=== PATIENT | male | born 1990 | race Caucasian/White ===

== ENCOUNTER 2022-01-19 00:56 | Emergency (ER) | payer SELFPAY ==
--- NOTE | ~2022-01-19 | XR_ITS ---
EXAMINATION: XR ELBOW, LEFT CLINICAL INFORMATION: Pain status post injury COMPARISON: None TECHNIQUE: AP, lateral, and oblique views of the left elbow. FINDINGS: No fracture or dislocation. Alignment is maintained. Joint spaces are maintained. No elbow joint effusion. The soft tissues are unremarkable. XR/XR elbow LT min 3V IMPRESSION: No fracture or malalignment.
[2022-01-19 01:23] VITALS: BP 114/65; PULSE 86; RESP 18; TEMP 36.2; O2SAT 96; BMI 33.6
--- NOTE | 2022-01-19 03:56 | ED_ITS ---
HPI - Extremity Problem General Chief complaint: Extremity Injury, Upper Stated complaint: elbow inj Time Seen by Provider: 01/19/22 03:56 Source: patient Mode of arrival: ambulatory Limitations: no limitations History of Present Illness HPI Narrative: patient was playing softball, was sliding into 3rd base and he heard a crack. MD Complaint: extremity pain Related Data Previous Rx's Medication Instructions Recorded naproxen 500 mg tablet (Naprosyn) 500 mg PO BID #20 tabs 01/19/22 Allergies Allergy/AdvReac Type Severity Reaction Status Date / Time No Known Allergies Allergy Verified 01/19/22 01:23 [No Known Allergies*] Review of Systems Constitutional: Constitutional: Reports no additional constitutional complaints Eyes: Eyes: Reports no additional eye complaints ENT: Denies dizziness Cardiovascular: Cardiovascular: Reports no additional cardiovascular complaints Respiratory: Respiratory: Reports as per HPI Gastrointestinal: Gastrointestinal: Reports no additional gastrointestinal complaints Musculoskeletal: Musculoskeletal: Reports no additional musculoskeletal com plaints Integumentary/Breasts: Skin/Breast: Denies rash Neurologic: Reports system reviewed and no additional complaints, except as documented, Denies dizziness and Denies Sensory deficit (Neuro) Psychiatric: Psychiatric: Denies anxiety Physical Exam Vital Signs: Vital Signs: Last Vital Signs Temp 97.2 F 01/19/22 01:23 Pulse 86 01/19/22 01:23 Resp 18 01/19/22 01:23 BP 114/65 01/19/22 01:23 Pulse Ox 96 01/19/22 01:23 O2 Del Method 01/19/22 01:23 BMI result Body Mass Index 33.6 Const: General: healthy appearing Nutritional Appearance: average body habitus Orientation/consciousness: oriented to person and patient oriented x3 Limitations: no limitations HEENT: Head: Yes normal to inspection Ears: external ears normal General nose exam: Normal external nose present Mouth: Normal oral and palatal mucosa present and oropharynx normal Throat: Yes posterior oropharynx normal Eyes: General: appearance normal, both eyes and all related structures Neck: Other: supple Neck: Yes normal visual inspection Chest: Chest palpation & inspection: normal inspection of the chest Resp: Auscultation: clear to auscultation bilaterally Cardio: Jugular venous distension: no JVD Rate: regular rate Rhythm: regular rhythm Heart sounds: S1 normal heart sound present and S2 normal heart sound present GI: Inspection: Yes normal to inspection Palpation (GI): Soft to palpation, nontender and No hepatosplenomegaly present Auscultation: normal bowel sounds : General: Yes no CVA tenderness Back/Spine/Pelvis: Back: no CVA tenderness Skin: General skin exam: no rashes or lesions noted Neuro: General: oriented to person and patient oriented x3 Cranial nerves: Yes CN's II-XII intact bilaterally Motor exam (neuro): 5/5 motor strength present throughout Sensory Exam: No Sensory deficit (Neuro) Extrem: Other: elbow with pain and decreased range of motion, no effusion Psych: Appearance: grossly normal Course Reevaluation(s) Reevaluation #1: patient with elbow sprain will start on ice and NSAIDS with a sling Time: 04:00 MDM - Extremity (Nontraumatic) Imaging Data elbow: Radiologist's impression: FINDINGS: No fracture or dislocation. Alignment is maintained. Joint spaces are maintained. No elbow joint effusion. The soft tissues are unremarkable. ? XR/XR elbow LT min 3V IMPRESSION: No fracture or malalignment. Discharge Plan Discharge Clinical Impression: Elbow sprain Patient Disposition: Home, Self-Care Instructions: Elbow Sprain (ED), R.I.C.E. Treatment (ED) Prescriptions: New naproxen [Naprosyn] 500 mg tablet 500 mg PO BID Qty: 20 0RF Referrals: Physician,Unknown J [Primary Care Provider] - 1 week Stand Alone Forms: Work/School Release
[2022-01-19] MEDS: Ketorolac Tromethamine 60 MG/2 ML VIAL IM (04:13)
--- NOTE | 2022-01-19 04:25 | PC.NURSE ---
pt medicated for pain per mar orders and sling applied to L arm.
== END 2022-01-19 04:26 | disposition home or self-care (01) ==
PROVIDERS: Emergency Provider Emergency Medicine
DX: S53.402A Unspecified sprain of left elbow, initial encounter (principal); W22.8XXA Striking against or struck by other objects, initial encounter; Y93.64 Activity, baseball; Y92.320 Baseball field as the place of occurrence of the external cause; Y99.9 Unspecified external cause status
CPT/HCPCS: 73080; 96372; 99283; 99284; J1885

== ENCOUNTER 2022-06-13 09:29 | Emergency (ER) | payer SELFPAY ==
[2022-06-13 09:47] VITALS: BP 115/77; PULSE 92; RESP 18; TEMP 36.6; O2SAT 99; BMI 30.5
--- NOTE | 2022-06-13 10:37 | ED.EYEPROB ---
HPI - Eye Problem General Chief complaint: Eye Problems Stated complaint: R eye swollen, no inj Time Seen by Provider: 06/13/22 10:29 Source: patient Mode of arrival: ambulatory Limitations: no limitations History of Present Illness HPI Narrative: 31 yo male presenting to the ER for evaluation of right upper eyelid redness, swelling and discomfort that started yesterday. He states he woke up this morning with increased redness and swelling and his eye was crusted shut. He had some yellow discharge that has since resolved. He denies any vision changes buthis right eye is watering more than the left. It is uncomfortable. No pain with extraocular movement. No fevers, chills, headaches. No FB sensation or known trauma. He does not wear contacts or glasses. chief complaint: eye pain and eye redness Onset (ago): day(s) (1) Onset description: gradual Duration: constant Location: right eye Eye Symptoms: redness, pain and discharge Mechanism: none Severity: moderate Severity scale (1-10): 5 If Pain, Quality: aching and throbbing Associated symptoms: none Treatments Prior to Arrival: none Related Data Previous Rx's Medication Instructions Recorded naproxen 500 mg tablet (Naprosyn) 500 mg PO BID #20 tabs 01/19/22 polymyxin B sulfate 10,000 1 drp ophthalmic (eye) Q3H 7 days 06/13/22 unit-trimethoprim 1 mg/mL eye #10 mL drops (Polytrim) Allergies Allergy/AdvReac Type Severity Reaction Status Date / Time No Known Allergies Allergy Verified 01/19/22 01:23 [No Known Allergies*] Review of Systems Review of Systems: Yes all other systems are reviewed and are negative [facility] Social History Social History Advance Directives: No Advance Directives Information Provided: No Physical Exam Vital Signs: Vital Signs: Last Vital Signs Temp 97.8 F 06/13/22 09:47 Pulse 92 06/13/22 09:47 Resp 18 06/13/22 09:47 BP 115/77 06/13/22 09:47 Pulse Ox 99 06/13/22 09:47 O2 Del Method 06/13/22 09:47 BMI result Body Mass Index 30.5 Appearance: Alert. Oriented X3. No acute distress. HEENT: right upper eyelid with swelling and erythema, tender. eversion of the eyelid with visible internal stye. no scleral icterus, no injection, no discharge. PERRLA. EOMI CVS: Normal heart rate and rhythm. Pulses normal. Respiratory: No respiratory distress. Skin: Skin warm and dry. Normal skin color. No rashes. Extremities: normal inspection x4 Neuro: Oriented X 3. Nonfocal Course Course Course Narrative: 31 yo male presenting to the ER with right upper eyelid swelling, redness and pain along with some discharge when he woke up this morning. Exam is c/w hordeolum. Will give rx for abx drops. warm compresses discussed. stable for d/c home. Medical Decision Making Differential Diagnosis Differential Diagnoses: The differential diagnosis associated with the presentation includes external hordeolum, internal hordelum, preseptal cellulitis, conjunctivitis, no evidence of orbital cellulitis Prescription Management I considered prescription management with: Antibiotic Critical Care Time Critical Care Time Critical Care Time: No Discharge Plan Discharge Clinical Impression: Hordeolum externum (stye) Patient Disposition: Home, Self-Care Instructions: Braulio (ED) Additional Instructions: Use warm compresses to the eye several times per day Use the prescribed antibiotic drops as directed Follow up with your eye doctor If you develop worsening symptoms call you doctor or come back to the ER for further evaluation. Prescriptions: New polymyxin B sulf-trimethoprim [Polytrim] 10,000 unit- 1 mg/mL drops 1 drp ophthalmic (eye) Q3H 7 Days Qty: 10 0RF Rx Instructions: while awake; do not exceed 6 doses in 24 hours No Action naproxen [Naprosyn] 500 mg tablet 500 mg PO BID Qty: 20 0RF Stand Alone Forms: Work/School Release Interventions: ED Discharge Assessment Last Done: 06/13/22 10:48 Discharge Date/Time: 06/13/22 10:48
== END 2022-06-13 10:48 | disposition home or self-care (01) ==
PROVIDERS: Emergency Provider Student in an Organized Health Care Education/Training Program
DX: H00.011 Hordeolum externum right upper eyelid (principal); Z79.899 Other long term (current) drug therapy
CPT/HCPCS: 99282

== ENCOUNTER 2023-10-20 23:03 | Emergency (ER) | payer SELFPAY ==
[2023-10-20 23:29] VITALS: BP 112/64; PULSE 93; RESP 16; TEMP 36.9; O2SAT 98; BMI 32.9
== END 2023-10-21 02:31 | disposition left against medical advice (07) ==
LOC: HO.ED 10-21 02:21
PROVIDERS: Emergency Provider Emergency Medicine
DX: M79.605 Pain in left leg (principal)
CPT/HCPCS: 99281

== ENCOUNTER 2023-10-21 20:35 | Emergency (ER) | payer SELFPAY ==
[2023-10-21 20:58] VITALS: BP 114/63; PULSE 68; RESP 18; TEMP 36.6; O2SAT 98; BMI 32.9
--- NOTE | 2023-10-21 22:25 | ED_ITS ---
HPI - Animal Bite General Chief Complaint: Animal Bite Stated Complaint: unknown insect bite Time Seen by Provider: 10/21/23 22:01 Source: patient Mode of arrival: ambulatory Limitations: no limitations History of Present Illness ED Provider: Dr. Qian Arechiga HPI narrative: Patient comes to the emergency room complaining of an insect bite to the left calf. Patient states that it started about 3 days ago and the redness and pain and swelling has gradually been spreading. Patient denies fever chills Related Data Previous Rx's ?Medication ?Instructions ?Recorded naproxen 500 mg tablet (Naprosyn) 500 mg PO BID #20 tabs 01/19/22 polymyxin B sulfate 10,000 1 drp ophthalmic (eye) Q3H 7 days 06/13/22 unit-trimethoprim 1 mg/mL eye #10 mL drops (Polytrim) cephalexin 500 mg capsule 500 mg PO BID #14 caps 10/21/23 doxycycline hyclate 100 mg capsule 100 mg PO BID #14 caps 10/21/23 ibuprofen 600 mg tablet 600 mg PO TID PRN fever or pain 10/21/23 #10 tabs Allergies Allergy/AdvReac Type Severity Reaction Status Date / Time No Known Allergies Allergy Verified 10/21/23 21:00 [No Known Allergies*] Review of Systems Review of Systems: Constitutional : No Weight loss, No Fever, No Chills, No Night Sweats, No Fatigue, No Malaise ENT/Mouth : No Hearing loss, No Ear Pain, No Nasal Congestion, No Sinus Pain, No Hoarseness, No sore throat, No Rhinorrhea, No Swallowing Difficulty Eyes: No Eye Pain, No Swelling, No Redness, No Foreign Body, No Discharge, No Vision Changes Cardiovascular : No Chest Pain, No SOB, No Dyspnea on Exertion, No Orthopnea, No Edema, No Palpitations Respiratory : No Cough, No Sputum, No Wheezing, No Smoke Exposure, No Dyspnea Gastrointestinal : No Nausea, No Vomiting, No Diarrhea, No Constipation, No abdominal Pain, No Hematochezia, No Melena Genitourinary : no irregular bleeding, No Dysuria, No Urinary Frequency, No Hematuria, No Urinary Incontinence, No Urgency, No Flank Pain, No Urinary Flow Changes, No Hesitancy Musculoskeletal : No joint pain, No Myalgias, No Joint Swelling Skin : Insect bite with cellulitis in the back of the calf on the left leg Neuro : No Weakness, No Numbness, No Paresthesias, No Loss of Consciousness, No Dizziness, No Headache Psych : No Anxiety/Panic, No Depression, No SI/HI/AH/VH, No Social Issues, Heme/Lymph: No Bruising, No Bleeding,No Lymphadenopathy Endocrine : No Polyuria, No Polydipsia, No Temperature Intolerance PMFSH Social History Social History Advance Directives: No Advance Directives Information Provided: No Do you have a plan to hurt others: No Plan Physical Exam ED Vital Signs: Vital Signs - 24 hr 10/21/23 20:58 Temperature 97.8 F Pulse Rate 68 Respiratory Rate 18 Blood Pressure 114/63 Pulse Oximetry 98 Oxygen Delivery Method Room Air BMI result Body Mass Index 32.9 Const Other: Appearance: Alert. Oriented X3. No acute distress. Eyes: Pupils equal, round and reactive to light. ENT: Pharynx normal. Neck: Normal inspection. Neck supple. No lymph nodes noted. No crepitus CVS: Normal heart rate and rhythm. Pulses normal. Normal S1 and S2 Respiratory: No respiratory distress. Breath sounds normal. No Wheezing. No rales Abdomen: Soft and nontender. No rigidity. No distention. Skin: Skin warm and dry. In the back of the calf on the left, there is a 3 cm x 3 cm area of erythema, warmth, with a central eschar approximately 2 mm x 10 mm. Extremities: No lower extremity edema. No Lacerations. No Rash Neuro: Oriented X 3. No motor deficit. No sensory deficit. Moving all extremities. No slurred speech. CN 2 through 12 grossly intact Psych: calm, cooperative, normal affect Medical Decision Making Medical Decision Making MDM Narrative: -I discussed with the patient that he started to develop an abscess. Discussed with the patient that we need to I and D/unroof the wound to drain the pus and start antibiotics, patient agrees with plan -eschar was removed with an 18 gauge needle tip, with pressure, a small pus was expressed. -patient was given Tdap, cephalexin p.o. and doxycycline Differential Diagnosis Differential Diagnoses: The differential diagnosis associated with the presentation includes (Insect bite, cellulitis, abscess) Discharge Plan Discharge Clinical Impression: Insect bite, Cellulitis Patient Disposition: Home, Self-Care Instructions: Cellulitis (ED), Cold Compress or Soak (ED) Additional Instructions: Please follow-up with your primary care physician tomorrow. If you have any worsening or new symptoms, please return to the emergency room or call 911 Prescriptions: New cephalexin 500 mg capsule 500 mg PO BID Qty: 14 0RF doxycycline hyclate 100 mg capsule 100 mg PO BID Qty: 14 0RF ibuprofen 600 mg tablet 600 mg PO TID PRN (Reason: fever or pain) Qty: 10 0RF No Action polymyxin B sulf-trimethoprim [Polytrim] 10,000 unit- 1 mg/mL drops 1 drp ophthalmic (eye) Q3H 7 Days Qty: 10 0RF Rx Instructions: while awake; do not exceed 6 doses in 24 hours naproxen [Naprosyn] 500 mg tablet 500 mg PO BID Qty: 20 0RF Print Language: Slovenian
[2023-10-21 22:35] VITALS: BP 107/68; PULSE 63; RESP 16; TEMP 36.6; O2SAT 98
[2023-10-21] MEDS: Diphth,Pertus(ACell),Tet Adult 0.5 ML SYRINGE IM (22:38)
[2023-10-21] MEDS: Doxycycline Monohydrate 100 MG CAPSULE PO (22:39)
[2023-10-21] MEDS: cephALEXin 250 MG CAPSULE PO (22:39)
[2023-10-21 22:42] VITALS: BP 107/68; PULSE 63; RESP 16; TEMP 36.6; O2SAT 98
== END 2023-10-21 22:42 | disposition home or self-care (01) ==
PROVIDERS: Emergency Provider Emergency Medicine
DX: S81.812A Laceration without foreign body, left lower leg, initial encounter (principal); L03.116 Cellulitis of left lower limb; X58.XXXA Exposure to other specified factors, initial encounter; Y93.9 Activity, unspecified; Y92.9 Unspecified place or not applicable; Y99.8 Other external cause status; Z79.899 Other long term (current) drug therapy; Z23 Encounter for immunization
CPT/HCPCS: 90471; 90715; 99283; 99284

== ENCOUNTER 2023-11-08 14:30 | Emergency (ER) | payer SELFPAY ==
--- NOTE | ~2023-11-08 | XR_ITS ---
EXAMINATION: XR RIBS, BILATERAL CLINICAL INFORMATION: Bilateral rib pain after lifting a box COMPARISON: None available. TECHNIQUE: 3 views of the bilateral ribs were obtained. FINDINGS: Lungs are clear. No consolidation, pneumothorax, or pleural effusion. The cardiomediastinal silhouette and pulmonary vasculature are normal. Osseous structures are unremarkable. Ribs are intact. No fractures are identified. XR/XR ribs BI min 4V w CXR1V IMPRESSION: Unremarkable examination.
[2023-11-08 14:46] VITALS: BP 108/61; PULSE 63; RESP 18; TEMP 36.6; O2SAT 96; BMI 32.5
--- NOTE | 2023-11-08 14:48 | ED.GENADULT ---
HPI - General Adult General Chief complaint: General Medical Stated complaint: Rib pain when breathing Time Seen by Provider: 11/08/23 15:19 Related Data Previous Rx's ?Medication ?Instructions ?Recorded naproxen 500 mg tablet (Naprosyn) 500 mg PO BID #20 tabs 01/19/22 polymyxin B sulfate 10,000 1 drp ophthalmic (eye) Q3H 7 days 06/13/22 unit-trimethoprim 1 mg/mL eye #10 mL drops (Polytrim) cephalexin 500 mg capsule 500 mg PO BID #14 caps 10/21/23 doxycycline hyclate 100 mg capsule 100 mg PO BID #14 caps 10/21/23 ibuprofen 600 mg tablet 600 mg PO TID PRN fever or pain 10/21/23 #10 tabs Allergies Allergy/AdvReac Type Severity Reaction Status Date / Time No Known Allergies Allergy Verified 11/08/23 14:52 [No Known Allergies*] PMFSH Social History Social History Advance Directives: No Advance Directives Information Provided: No Do you have a plan to hurt others: No Plan Physical Exam ED Vital Signs: BMI result Body Mass Index 32.5 Course Course Course Narrative: This is a rapid medical exam performed by Kalani Rock NP: Additional HPI, ROS, PE not included below will be deferred to primary provider. Patient is a 33-year-old male presenting to the ED with complaint of bilateral rib pain which began while lifting a box which he states was not that heavy. Occurred at work. History of kidney stones feels similar. Plan: xray, labs, ua Medications Administered Discontinued Medications Generic Name Dose Route Start Last Admin Trade Name Freq PRN Reason Stop Dose Admin Ketorolac Tromethamine 30 mg 11/08/23 15:28 11/08/23 16:31 Ketorolac Tromethamine 30 Mg/Ml Vial IM 11/08/23 15:29 30 mg ONCE ONE Administration Medical Decision Making Lab Data 11/08/23 15:17 11/08/23 15:17 Labs: Lab Results 11/08/23 Range/Units 15:17 WBC 7.8 (4.8-10.8) X10*3/uL RBC 4.82 (4.60-5.80) X10*6/uL Hgb 14.1 (14.0-18.0) g/dl Hct 43.4 (42.0-52.0) % MCV 90.0 (80.0-98.0) fL MCH 29.3 (27.0-33.0) pg MCHC 32.5 (31.0-36.0) g/dl RDW 11.9 (11.0-16.0) % Plt Count 237 (160-400) X10*3/uL MPV 10.1 (9.4-12.4) fL Immature Gran % (Auto) 0.4 (0.0-0.4) % Neut % (Auto) 59.0 (45-73) % Lymph % (Auto) 33.1 (20-40) % [place] % (Auto) 5.9 (2-11) % Eos % (Auto) 1.2 (0-4) % Baso % (Auto) 0.4 (0-2) % Lymph # (Auto) 2.6 (1.2-4.9) X10*3/uL [place] # (Auto) 0.5 (0.1-1.2) X10*3/uL Eos # (Auto) 0.1 (0.0-0.4) X10*3/uL Baso # (Auto) 0.0 (0.0-0.2) X10*3/uL Abs Immat Gran (auto) 0.03 (0.00-0.03) X10*3/uL Absolute Neuts (auto) 4.6 (2.0-8.3) x10*3/uL Absolute Nucleated RBC 0.000 (0.0-0.012) X10*3/uL Nucleated RBC % (auto) 0.0 (0.0-0.2) /100WBC Sodium 141 (135-145) mmol/L Potassium 4.4 (3.3-5.1) mmol/L Chloride 105 (96-108) mmol/L Carbon Dioxide 31 H (22-29) mmol/L Anion Gap 9 L (12-20) BUN 15 (9-16) mg/dL Creatinine 1.03 (0.5-1.4) mg/dL Estim Creat Clear Calc 113.6 Estimated GFR > 60 Random Glucose 96 (60-115) mg/dL Calcium 9.6 (8.4-10.2) mg/dL Total Bilirubin 0.4 (0.0-1.0) mg/dL AST 18 (5-37) U/L ALT 14 (0-40) U/L Alkaline Phosphatase 78 (39-117) U/L Total Protein 7.5 (6.5-8.0) g/dL Albumin 4.5 (3.5-5.0) g/dL Discharge Plan Discharge Clinical Impression: Rib pain Patient Disposition: Home, Self-Care Instructions: Muscle Strain (ED) Additional Instructions: You were seen and evaluated in the emergency room. Your blood work was normal. Your x-rays were normal. Please take 1000 mg Tylenol every 8 hours as needed for pain relief. You may additionally takes 600 mg ibuprofen every 6 hours as needed for additional pain relief. Please always take with food and water. Please wait 12 hours from your ER visit before taking ibuprofen. Please follow-up with your primary care doctor in the next 1-2 weeks.? Please return to the emergency room if you develop any worsening symptoms including, but not limited to fever, chest pain or difficulty breathing. ? Prescriptions: No Action polymyxin B sulf-trimethoprim [Polytrim] 10,000 unit- 1 mg/mL drops 1 drp ophthalmic (eye) Q3H 7 Days Qty: 10 0RF Rx Instructions: while awake; do not exceed 6 doses in 24 hours naproxen [Naprosyn] 500 mg tablet 500 mg PO BID Qty: 20 0RF cephalexin 500 mg capsule 500 mg PO BID Qty: 14 0RF doxycycline hyclate 100 mg capsule 100 mg PO BID Qty: 14 0RF ibuprofen 600 mg tablet 600 mg PO TID PRN (Reason: fever or pain) Qty: 10 0RF Referrals: [facility] [place] [facility] [Provider Group] Interventions: ED Discharge Assessment Last Done: 11/08/23 17:09 Discharge Date/Time: 11/08/23 17:12 Print Language: Uzbek
[2023-11-08 15:20] VITALS: BP 110/64; PULSE 66; RESP 18; TEMP 36.8; O2SAT 98
[2023-11-08 15:21] LABS: MANUAL DIFF FLAG NO
--- NOTE | 2023-11-08 15:23 | ED_ITS ---
HPI - General Adult General Chief complaint: General Medical Stated complaint: Rib pain when breathing Time Seen by Provider: 11/08/23 15:19 Source: patient Mode of arrival: ambulatory Limitations: no limitations History of Present Illness HPI narrative: This is a 33-year-old with no reported past medical history who presents for evaluation of bilateral rib pain. The patient states that he was making a delivery 4 days prior to presentation and began to develop pain after moving a box. He states the box was not that heavy and that it was a ?Chewy box. He states taking Tylenol with some alleviation of his pain on that day. He states taking no Tylenol or ibuprofen since that time. He states no other trauma or falls. He states no midline back pain. He states no fevers or chills. He states no recent cough, congestion, nausea/vomiting or diarrhea no illness. He states no chest pain. He states no rash. He states recurrence of his rib pain today after lifting other box. He states pain is worse on his left rib, but states a still feels pain on his right rib as well. Related Data Previous Rx's ?Medication ?Instructions ?Recorded naproxen 500 mg tablet (Naprosyn) 500 mg PO BID #20 tabs 01/19/22 polymyxin B sulfate 10,000 1 drp ophthalmic (eye) Q3H 7 days 06/13/22 unit-trimethoprim 1 mg/mL eye #10 mL drops (Polytrim) cephalexin 500 mg capsule 500 mg PO BID #14 caps 10/21/23 doxycycline hyclate 100 mg capsule 100 mg PO BID #14 caps 10/21/23 ibuprofen 600 mg tablet 600 mg PO TID PRN fever or pain 10/21/23 #10 tabs Allergies Allergy/AdvReac Type Severity Reaction Status Date / Time No Known Allergies Allergy Verified 11/08/23 14:52 [No Known Allergies*] Review of Systems 2 Review of Systems: ROS as per [facility] Social History Social History Advance Directives: No Advance Directives Information Provided: No Do you have a plan to hurt others: No Plan Physical Exam ED Vital Signs: Vital Signs - 24 hr 11/08/23 14:46 11/08/23 15:20 Temperature 98 F 98.2 F Pulse Rate 63 66 Respiratory Rate 18 18 Blood Pressure 108/61 110/64 Pulse Oximetry 96 98 Oxygen Delivery Method Room Air Room Air BMI result Body Mass Index 32.5 Gen: NAD, AOx3 HEENT: NCAT, EOMI, normal conjunctiva CV: RRR Pulm: CTAB, no increased work of breathing GI: Soft, NTND, no rebound, guarding or rigidity MSK: Mild tenderness to palpation to the left lateral chest wall and right lateral chest wall without overlying skin changes Neuro: Grossly non focal Medications Administered Discontinued Medications Generic Name Dose Route Start Last Admin Trade Name Roxann PRN Reason Stop Dose Admin Ketorolac Tromethamine 30 mg 11/08/23 15:28 11/08/23 16:31 Ketorolac Tromethamine 30 Mg/Ml Vial IM 11/08/23 15:29 30 mg ONCE ONE Administration Medical Decision Making Medical Decision Making [facility] Narrative: Differential diagnosis includes, but is not limited to strain, sprain, pneumothorax. Consider herpes zoster but this is thought to be significantly less likely given bilateral nature of pain, waxing and waning pain and lack of a vesicular rash on examination. Patient is afebrile and hemodynamically stable on room air. Exam is benign and reassuring. Given history and exam, I suspect that the etiology of patient's pain is most likely musculoskeletal in nature and I will treat it as such. Patient is provided 30 mg IM Toradol. Diagnostic imaging studies are unremarkable for any acute findings. On re-examination, patient is well-appearing and in no acute distress. ?Patient states symptoms have improved with Toradol. ?There is no indication for further emergent evaluation in this otherwise well-appearing patient as above. ?Patient is provided written and verbal instructions, educational materials, recommendations for outpatient follow-up, strict return precautions and teach back is performed. ?Patient states understanding and agreement with plan of care. ?Patient is discharged home in stable and improved condition. Admission/Observation Consideration of admission/observation: Escalation of care including admission/observation considered Lab Data [facility] Lab Attestation statement: I reviewed the patient's lab results. 11/08/23 15:17 11/08/23 15:17 Labs: Lab Results 11/08/23 Range/Units 15:17 WBC 7.8 (4.8-10.8) X10*3/uL RBC 4.82 (4.60-5.80) X10*6/uL Hgb 14.1 (14.0-18.0) g/dl Hct 43.4 (42.0-52.0) % MCV 90.0 (80.0-98.0) fL MCH 29.3 (27.0-33.0) pg MCHC 32.5 (31.0-36.0) g/dl RDW 11.9 (11.0-16.0) % Plt Count 237 (160-400) X10*3/uL MPV 10.1 (9.4-12.4) fL Immature Gran % (Auto) 0.4 (0.0-0.4) % Neut % (Auto) 59.0 (45-73) % Lymph % (Auto) 33.1 (20-40) % Morrow % (Auto) 5.9 (2-11) % Eos % (Auto) 1.2 (0-4) % Baso % (Auto) 0.4 (0-2) % Lymph # (Auto) 2.6 (1.2-4.9) X10*3/uL Morrow # (Auto) 0.5 (0.1-1.2) X10*3/uL Eos # (Auto) 0.1 (0.0-0.4) X10*3/uL Baso # (Auto) 0.0 (0.0-0.2) X10*3/uL Abs Immat Gran (auto) 0.03 (0.00-0.03) X10*3/uL Absolute Neuts (auto) 4.6 (2.0-8.3) x10*3/uL Absolute Nucleated RBC 0.000 (0.0-0.012) X10*3/uL Nucleated RBC % (auto) 0.0 (0.0-0.2) /100WBC Sodium 141 (135-145) mmol/L Potassium 4.4 (3.3-5.1) mmol/L Chloride 105 (96-108) mmol/L Carbon Dioxide 31 H (22-29) mmol/L Anion Gap 9 L (12-20) BUN 15 (9-16) mg/dL Creatinine 1.03 (0.5-1.4) mg/dL Estim Creat Clear Calc 113.6 Estimated GFR > 60 Random Glucose 96 (60-115) mg/dL Calcium 9.6 (8.4-10.2) mg/dL Total Bilirubin 0.4 (0.0-1.0) mg/dL AST 18 (5-37) U/L ALT 14 (0-40) U/L Alkaline Phosphatase 78 (39-117) U/L Total Protein 7.5 (6.5-8.0) g/dL Albumin 4.5 (3.5-5.0) g/dL Independent Interpretation I performed an independent interpretation of an: Plain X-Ray Interpretation: X-ray does not show evidence of pneumothorax Radiology Impression Discussion of test interpretation with radiology: I have reviewed the radiologist's reading. Radiologist Impression: IMPRESSION: Unremarkable examination. Dictated By: Roberto Escamilla MD Signed By: <Electronically signed by Roberto Escamilla MD in OV> 11/08/23 1636 Discharge Plan Discharge Clinical Impression: Rib pain Patient Disposition: Home, Self-Care Instructions: Muscle Strain (ED) Additional Instructions: You were seen and evaluated in the emergency room. Your blood work was normal. Your x-rays were normal. Please take 1000 mg Tylenol every 8 hours as needed for pain relief. You may additionally takes 600 mg ibuprofen every 6 hours as needed for additional pain relief. Please always take with food and water. Please wait 12 hours from your ER visit before taking ibuprofen. Please follow-up with your primary care doctor in the next 1-2 weeks.? Please return to the emergency room if you develop any worsening symptoms including, but not limited to fever, chest pain or difficulty breathing. ? Prescriptions: No Action polymyxin B sulf-trimethoprim [Polytrim] 10,000 unit- 1 mg/mL drops 1 drp ophthalmic (eye) Q3H 7 Days Qty: 10 0RF Rx Instructions: while awake; do not exceed 6 doses in 24 hours naproxen [Naprosyn] 500 mg tablet 500 mg PO BID Qty: 20 0RF cephalexin 500 mg capsule 500 mg PO BID Qty: 14 0RF doxycycline hyclate 100 mg capsule 100 mg PO BID Qty: 14 0RF ibuprofen 600 mg tablet 600 mg PO TID PRN (Reason: fever or pain) Qty: 10 0RF Referrals: [facility] Print Language: Georgian
[2023-11-08 15:28] LABS: Basophils Percent Auto 0.4 % (0-2); Eosinophils Absolute Auto 0.1 X10*3/uL (0.0-0.4); Eosinophils Percent Auto 1.2 % (0-4); Hematocrit 43.4 % (42.0-52.0); Hemoglobin 14.1 g/dl (14.0-18.0); Imm Gran Abs Auto 0.03 X10*3/uL (0.00-0.03); Imm Gran Pct Auto 0.4 % (0.0-0.4); Lymphocytes Absolute Auto 2.6 X10*3/uL (1.2-4.9); Lymphocytes Percent Auto 33.1 % (20-40); Mean Corpuscular HGB Conc 32.5 g/dl (31.0-36.0); Mean Corpuscular Hemoglobin 29.3 pg (27.0-33.0); Mean Platelet Volume 10.1 fL (9.4-12.4); Monocytes Absolute Auto 0.5 X10*3/uL (0.1-1.2); Monocytes Percent Auto 5.9 % (2-11); Neutrophils Absolute Auto 4.6 x10*3/uL (2.0-8.3); Platelet Count 237 X10*3/uL (160-400); Red Blood Count 4.82 X10*6/uL (4.60-5.80); Red Cell Distribution Width 11.9 % (11.0-16.0); White Blood Count 7.8 X10*3/uL (4.8-10.8)
[2023-11-08 15:45] LABS: Alanine Aminotransferase 14 U/L (0-40); Albumin Level 4.5 g/dL (3.5-5.0); Alkaline Phosphatase 78 U/L (39-117); Anion Gap 9 (12-20); Aspartate Amino Transferase 18 U/L (5-37); Bilirubin Total 0.4 mg/dL (0.0-1.0); Blood Urea Nitrogen 15 mg/dL (9-16); Calcium 9.6 mg/dL (8.4-10.2); Carbon Dioxide 31 mmol/L (22-29); Chloride 105 mmol/L (96-108); Creatinine Clr Calc Pharmacy 113.6; Estimated Glomerular Filt Rate > 60; Glucose Random 96 mg/dL (60-115); Potassium 4.4 mmol/L (3.3-5.1); Sodium 141 mmol/L (135-145); Total Protein 7.5 g/dL (6.5-8.0)
[2023-11-08] MEDS: Ketorolac Tromethamine 30 MG/ML VIAL IM (16:31)
[2023-11-08 17:09] VITALS: BP 110/64; PULSE 66; RESP 18; TEMP 36.8; O2SAT 98
== END 2023-11-08 17:12 | disposition home or self-care (01) ==
PROVIDERS: Registered Nurse Emergency; Emergency Provider Emergency Medicine
DX: R07.81 Pleurodynia (principal)
CPT/HCPCS: 36415; 71111; 80053; 85025; 96372; 99283; 99284; J1885

== ENCOUNTER 2023-12-03 21:30 | Emergency (ER) | payer SELFPAY ==
--- NOTE | ~2023-12-03 | XR_ITS ---
EXAMINATION: XR FOOT, LEFT CLINICAL INFORMATION: Left foot injury COMPARISON: 07/26/2017 TECHNIQUE: AP, lateral, and oblique views of the left foot. FINDINGS: Minimal arthrosis at the first MTP joint with small osteophytes. Trabecular coarsening and cortical thickening at the fifth metatarsal base most likely corresponds to an old healed fracture. No acute fractures or stress reactions. Soft tissues are unremarkable. No subcutaneous gas. XR/XR foot LT min 3V IMPRESSION: 1. No acute fracture or malalignment. 2. Minimal arthrosis at the first MTP joint. 3. Old healed fifth metatarsal base fracture.
[2023-12-03 21:37] VITALS: BP 132/72; PULSE 105; RESP 19; TEMP 36.7; O2SAT 97; BMI 33.2
[2023-12-03] MEDS: Ibuprofen 600 MG TABLET PO (23:53)
[2023-12-03] MEDS: cephALEXin 500 MG CAPSULE PO (23:53)
[2023-12-04] VITALS: BP 130/70; PULSE 93; RESP 18; TEMP 36.8; O2SAT 98
--- NOTE | 2023-12-04 00:17 | ED.LOWEXIN ---
HPI - Extremity Injury (Lower) General Chief Complaint: Extremity Injury, Lower Stated Complaint: left foot pain Time Seen by Provider: 12/03/23 23:19 Source: patient Mode of arrival: ambulatory Limitations: no limitations History of Present Illness ED Provider: Dr. Qian Arechiga HPI Narrative: Patient comes to the emergency room complaining of foot pain on the left. Patient states that yesterday he accidentally dropped a heavy cooler on his foot, patient was wearing Crocs. Patient states that the dorsum of the foot hurts, but has been able to walk without any significant difficulty. Related Data Previous Rx's ?Medication ?Instructions ?Recorded naproxen 500 mg tablet (Naprosyn) 500 mg PO BID #20 tabs 01/19/22 polymyxin B sulfate 10,000 1 drp ophthalmic (eye) Q3H 7 days 06/13/22 unit-trimethoprim 1 mg/mL eye #10 mL drops (Polytrim) cephalexin 500 mg capsule 500 mg PO BID #14 caps 10/21/23 doxycycline hyclate 100 mg capsule 100 mg PO BID #14 caps 10/21/23 ibuprofen 600 mg tablet 600 mg PO TID PRN fever or pain 10/21/23 #10 tabs cephalexin 500 mg capsule 500 mg PO BID #14 caps 12/04/23 ibuprofen 600 mg tablet 600 mg PO Q8H PRN fever or pain 12/04/23 #20 tabs Allergies Allergy/AdvReac Type Severity Reaction Status Date / Time No Known Allergies Allergy Verified 12/03/23 21:39 [No Known Allergies*] Review of Systems Review of Systems: Constitutional : No Weight loss, No Fever, No Chills, No Night Sweats, No Fatigue, No Malaise ENT/Mouth : No Hearing loss, No Ear Pain, No Nasal Congestion, No Sinus Pain, No Hoarseness, No sore throat, No Rhinorrhea, No Swallowing Difficulty Eyes: No Eye Pain, No Swelling, No Redness, No Foreign Body, No Discharge, No Vision Changes Cardiovascular : No Chest Pain, No SOB, No Dyspnea on Exertion, No Orthopnea, No Edema, No Palpitations Respiratory : No Cough, No Sputum, No Wheezing, No Smoke Exposure, No Dyspnea Gastrointestinal : No Nausea, No Vomiting, No Diarrhea, No Constipation, No abdominal Pain, No Hematochezia, No Melena Genitourinary : no irregular bleeding, No Dysuria, No Urinary Frequency, No Hematuria, No Urinary Incontinence, No Urgency, No Flank Pain, No Urinary Flow Changes, No Hesitancy Musculoskeletal : Complaining of pain in the dorsum of the left foot No joint pain, No Myalgias, No Joint Swelling Skin : No Skin Lesions, No rash Neuro : No Weakness, No Numbness, No Paresthesias, No Loss of Consciousness, No Dizziness, No Headache Psych : No Anxiety/Panic, No Depression, No SI/HI/AH/VH, No Social Issues, Heme/Lymph: No Bruising, No Bleeding,No Lymphadenopathy Endocrine : No Polyuria, No Polydipsia, No Temperature Intolerance [facility] Social History Social History Smoked in Last 30 Days: No Advance Directives: No Advance Directives Information Provided: No Do you have a plan to hurt others: No Plan Physical Exam Vital Signs: Vital Signs: Last Vital Signs Temp 98.2 F 12/04/23 00:00 Pulse 93 12/04/23 00:00 Resp 18 12/04/23 00:00 BP 130/70 12/04/23 00:00 Pulse Ox 98 12/04/23 00:00 O2 Del Method Room Air 12/04/23 00:00 BMI result Body Mass Index 33.2 Const: Other: Appearance: Alert. Oriented X3. No acute distress. Eyes: Pupils equal, round and reactive to light. ENT: Pharynx normal. Neck: Normal inspection. Neck supple. No lymph nodes noted. No crepitus CVS: Normal heart rate and rhythm. Pulses normal. Normal S1 and S2 Respiratory: No respiratory distress. Breath sounds normal. No Wheezing. No rales Abdomen: Soft and nontender. No rigidity. No distention. Skin: Skin warm and dry. Normal skin color. Normal skin turgor. Mild erythema 3 cm x 3 cm on the dorsum of the left foot Extremities: No lower extremity edema. No Lacerations. No Rash Neuro: Oriented X 3. No motor deficit. No sensory deficit. Moving all extremities. No slurred speech. CN 2 through 12 grossly intact Psych: calm, cooperative, normal affect Medications Administered Discontinued Medications Generic Name Dose Route Start Last Admin Trade Name Freq PRN Reason Stop Dose Admin Cephalexin HCl 500 mg 12/03/23 23:41 12/03/23 23:53 Cephalexin 500 Mg Capsule PO 12/03/23 23:42 500 mg ONCE ONE Administration Ibuprofen 600 mg 12/03/23 23:41 12/03/23 23:53 Ibuprofen 600 Mg Tablet PO 12/03/23 23:42 600 mg ONCE ONE Administration Medical Decision Making Medical Decision Making [facility] Narrative: My interpretation of x-ray of the foot: No obvious fracture, normal alignment. -patient has mild erythema on the dorsum of the foot, patient likely has cellulitis. - patient was given the 1st dose of antibiotics, cephalexin Differential Diagnosis Differential Diagnoses: The differential diagnosis associated with the presentation includes (Foot contusion, fracture, cellulitis) Independent Interpretation I performed an independent interpretation of an: Plain X-Ray Radiology Impression Discussion of test interpretation with radiology: I have reviewed the radiologist's reading. Radiologist Impression: Minimal arthrosis at the first MTP joint with small osteophytes. Trabecular coarsening and cortical thickening at the fifth metatarsal base most likely corresponds to an old healed fracture. No acute fractures or stress reactions. Soft tissues are unremarkable. No subcutaneous gas. XR/XR foot LT min 3V IMPRESSION: 1. No acute fracture or malalignment. 2. Minimal arthrosis at the first MTP joint. 3. Old healed fifth metatarsal base fracture. Discharge Plan Discharge Clinical Impression: Contusion of foot, Cellulitis Patient Disposition: Home, Self-Care Instructions: Cellulitis (ED), Foot Contusion (ED) Additional Instructions: Please follow-up with your primary care physician tomorrow. If you have any worsening or new symptoms, please return to the emergency room or call 911 Prescriptions: New cephalexin 500 mg capsule 500 mg PO BID Qty: 14 0RF ibuprofen 600 mg tablet 600 mg PO Q8H PRN (Reason: fever or pain) Qty: 20 0RF No Action polymyxin B sulf-trimethoprim [Polytrim] 10,000 unit- 1 mg/mL drops 1 drp ophthalmic (eye) Q3H 7 Days Qty: 10 0RF Rx Instructions: while awake; do not exceed 6 doses in 24 hours naproxen [Naprosyn] 500 mg tablet 500 mg PO BID Qty: 20 0RF cephalexin 500 mg capsule 500 mg PO BID Qty: 14 0RF doxycycline hyclate 100 mg capsule 100 mg PO BID Qty: 14 0RF ibuprofen 600 mg tablet 600 mg PO TID PRN (Reason: fever or pain) Qty: 10 0RF Print Language: Estonian
[2023-12-04 00:28] VITALS: BP 130/70; PULSE 93; RESP 18; TEMP 36.8; O2SAT 98
== END 2023-12-04 00:29 | disposition home or self-care (01) ==
PROVIDERS: Emergency Provider Emergency Medicine
DX: S90.32XA Contusion of left foot, initial encounter (principal); W20.8XXA Other cause of strike by thrown, projected or falling object, initial encounter; L03.116 Cellulitis of left lower limb; Y93.89 Activity, other specified; Y92.9 Unspecified place or not applicable; Y99.9 Unspecified external cause status
CPT/HCPCS: 73630; 99283; 99284

== ENCOUNTER 2024-05-28 11:30 | Emergency (ER) | payer SELFPAY ==
--- NOTE | ~2024-05-28 | XR_ITS ---
EXAMINATION: XR FOOT 3 OR MORE VIEWS RIGHT, XR ANKLE 3 OR MORE VIEWS RIGHT HISTORY: pain COMPARISON: Comparison is made with the prior examination of the right ankle dated 02/23/2019. FINDINGS: Six views of the right foot and ankle are submitted. Osseous mineralization is normal. There is no fracture or dislocation. The joint spaces are preserved. The soft tissues are unremarkable. XR/XR ankle RT min 3V IMPRESSION: Unremarkable examination of the right foot and ankle. Electronically signed by: Dorian Cortés MD 05/28/2024 12:46 PM EST
--- NOTE | ~2024-05-28 | XR_ITS ---
EXAMINATION: XR FOOT 3 OR MORE VIEWS RIGHT, XR ANKLE 3 OR MORE VIEWS RIGHT HISTORY: pain COMPARISON: Comparison is made with the prior examination of the right ankle dated 02/23/2019. FINDINGS: Six views of the right foot and ankle are submitted. Osseous mineralization is normal. There is no fracture or dislocation. The joint spaces are preserved. The soft tissues are unremarkable. XR/XR foot RT min 3V IMPRESSION: Unremarkable examination of the right foot and ankle. Electronically signed by: Dorian Cortés MD 05/28/2024 12:46 PM EST
[2024-05-28 11:57] VITALS: BP 117/63; PULSE 61; RESP 18; TEMP 36.8; O2SAT 99; BMI 32.1
--- NOTE | 2024-05-28 12:00 | ED_ITS ---
HPI - Extremity Injury (Lower) General Chief Complaint: Extremity Injury, Lower Stated Complaint: R foot toe inj Time Seen by Provider: 05/28/24 14:01 Source: patient Mode of arrival: ambulatory Limitations: no limitations History of Present Illness ED Provider: Nicky Carrillo APRN HPI Narrative: 33-year-old male previously healthy here with complaints of right great toe pain after kicking a curb yesterday. Patient denies associated numbness, tingling, weakness of the extremity. Patient reports pain is worsened with weight- bearing. Related Data Previous Rx's ?Medication ?Instructions ?Recorded naproxen 500 mg tablet (Naprosyn) 500 mg PO BID #20 tabs 01/19/22 polymyxin B sulfate 10,000 1 drp ophthalmic (eye) Q3H 7 days 06/13/22 unit-trimethoprim 1 mg/mL eye #10 mL drops (Polytrim) cephalexin 500 mg capsule 500 mg PO BID #14 caps 10/21/23 doxycycline hyclate 100 mg capsule 100 mg PO BID #14 caps 10/21/23 ibuprofen 600 mg tablet 600 mg PO TID PRN fever or pain 10/21/23 #10 tabs cephalexin 500 mg capsule 500 mg PO BID #14 caps 12/04/23 ibuprofen 600 mg tablet 600 mg PO Q8H PRN fever or pain 12/04/23 #20 tabs acetaminophen 325 mg tablet 650 mg (2 x 325 mg) PO Q4H PRN 05/28/24 (Tylenol) fever or pain #30 tabs ibuprofen 600 mg tablet 600 mg PO Q8H PRN fever or pain 05/28/24 #20 tabs Allergies Allergy/AdvReac Type Severity Reaction Status Date / Time No Known Allergies Allergy Verified 05/28/24 12:01 [No Known Allergies*] Review of Systems Review of Systems: Yes all other systems are reviewed and are negative Constitutional: Constitutional: Reports no additional constitutional complaints, Denies body ache(s), Denies chills, Denies fever(s), Denies headache(s) and Denies weakness Eyes: Eyes: Reports no additional eye complaints and Denies change in vision ENT: Reports system reviewed and no additional complaints, except as documented, Denies dizziness, Denies headache(s), Denies nasal congestion, Denies nasal discharge and Denies neck pain Cardiovascular: Cardiovascular: Reports no additional cardiovascular complaints, Denies chest pain, Denies leg edema and Denies dyspnea Respiratory: Respiratory: Reports no additional respiratory complaints, Denies cough and Denies dyspnea Gastrointestinal: Gastrointestinal: Reports no additional gastrointestinal complaints, Denies abdominal pain, Denies diarrhea, Denies nausea and Denies vomiting Genitourinary: Genitourinary: Denies urinary incontinence Musculoskeletal: Musculoskeletal: Reports no additional musculoskeletal complaints, Denies back pain, Reports arthralgias, Reports joint swelling, Denies limited range of motion, Denies neck pain, Denies numbness and Denies tingling Integumentary/Breasts: Skin/Breast: Reports system reviewed and no additional complaints, except as docu and Denies rash Neurologic: Reports system reviewed and no additional complaints, except as documented, Denies Abnormal speech present, Denies dizziness, Denies headache(s), Denies numbness, Denies tingling and Denies weakness PMFSH Past Medical History Attestation statement: The following information was validated with the patient. Source: old records reviewed and nursing notes reviewed Social History Social History Advance Directives: No Advance Directives Information Provided: Yes Do you have a plan to hurt others: No Plan Physical Exam Vital Signs: Vital Signs: Last Vital Signs Temp 98.2 F 05/28/24 11:57 Pulse 61 05/28/24 11:57 Resp 18 05/28/24 11:57 BP 117/63 05/28/24 11:57 Pulse Ox 99 05/28/24 11:57 O2 Del Method Room Air 05/28/24 11:57 BMI result Body Mass Index 32.1 Const: General: cooperative, healthy appearing, comfortable and no acute distress Orientation/consciousness: patient oriented x3 Limitations: no limitations HEENT: Head: Yes normal to inspection Ears: hearing grossly normal bilaterally General nose exam: Normal external nose present Face and sinus: Yes normal facial exam Mouth: Normal oral and palatal mucosa present Throat: Yes posterior oropharynx normal Eyes: General: appearance normal, both eyes and all related structures Pupils: Equal, round and reactive pupils present Neck: Neck: Yes normal visual inspection Chest: Chest palpation & inspection: normal inspection of the chest Resp: Effort & Inspection: normal respiratory effort Auscultation: clear to auscultation bilaterally Cardio: Rate: regular rate Rhythm: regular rhythm Peripheral pulses: Peripheral pulses 2+ throughout GI: Inspection: Yes normal to inspection Palpation (GI): Soft to palpation and nontender Auscultation: normal bowel sounds Back/Spine/Pelvis: Thoracic/Lumbar Spine: thoracic and lumbar spine normal to inspection Skin: General skin exam: no rashes or lesions noted Neuro: General: patient oriented x3, no focal motor deficits and normal sensation to monofilament Cranial nerves: Yes Equal, round and reactive pupils present Cognition (Neuro): normal cognition Speech: No Abnormal speech present Gait exam (Neuro): Normal gait present Motor exam (neuro): 5/5 motor strength present throughout Extrem: Other: There is bruising and swelling noted to the dorsal aspect of the right 1st great toe. There is limited flexion and extension due to pain. There is no pain on palpation over the dorsal foot or ankle. There is full active and passive range of motion of the foot and ankle. There is normal sensation. 2+ DP and PT pulses. Course Course Course Narrative: This is an RME: Additional HPI, ROS, PE not included below will be deferred to primary provider. RME assessment and note performed by: Katlin Fowler PA-C This is a 33-year-old male, with a history of right foot fracture, who presents emergency department complaints of right foot pain since yesterday. Reports that he kicked a curb yesterday and felt pain in his right foot. unable to bear weight Plan: xray foot and ankle Medical Decision Making Medical Decision Making MDM Narrative: 33-year-old male previously healthy here with complaints of right great toe pain after kicking a curb yesterday. Patient denies associated numbness, tingling, weakness of the extremity. Patient reports pain is worsened with weight- bearing. There is bruising and swelling noted to the dorsal aspect of the right 1st great toe. There is limited flexion and extension due to pain. There is no pain on palpation over the dorsal foot or ankle. There is full active and p assive range of motion of the foot and ankle. There is normal sensation. 2+ DP and PT pulses. Will check x-ray Differential Diagnosis Differential Diagnoses: The differential diagnosis associated with the presentation includes contusion, fracture, dislocation Admission/Observation Consideration of admission/observation: Escalation of care including admission/observation considered Independent Interpretation I performed an independent interpretation of an: Plain X-Ray Interpretation: I independently viewed the x-ray and agree with the radiology report Radiology Impression Discussion of test interpretation with radiology: I have reviewed the radiologist's reading. Radiologist Impression: [address] [address] XRay Report Signed Patient: Lalo Adams Jr MR#: [id number] : 1990 Acct:[id number] Age/Sex: 33 / M ADM Date: 05/28/24 Loc: .ED Attending Dr: Ordering Physician: Katlin Fowler Date of Service: 05/28/24 Procedure(s): XR foot RT min 3V Accession Number(s): [id number] cc: Katlin Fowler; Physician,None ~ EXAMINATION: XR FOOT 3 OR MORE VIEWS RIGHT, XR ANKLE 3 OR MORE VIEWS RIGHT HISTORY: pain COMPARISON: Comparison is made with the prior examination of the right ankle dated 02/23/2019. FINDINGS: Six views of the right foot and ankle are submitted. Osseous mineralization is normal. There is no fracture or dislocation. The joint spaces are preserved. The soft tissues are unremarkable. XR/XR foot RT min 3V IMPRESSION: Unremarkable examination of the right foot and ankle. Electronically signed by: Dorian Cortés MD 05/28/2024 12:46 PM [facility] [place] [address] [address] XRay Report Signed Patient: Lalo Adams Jr MR#: [id number] : 1990 Acct:[id number] Age/Sex: 33 / M ADM Date: 05/28/24 Loc: .ED Attending Dr: Ordering Physician: Katlin Fowler Date of Service: 05/28/24 Procedure(s): XR ankle RT min 3V Accession Number(s): [id number] cc: Katlin Fowler; Physician,None ~ EXAMINATION: XR FOOT 3 OR MORE VIEWS RIGHT, XR ANKLE 3 OR MORE VIEWS RIGHT HISTORY: pain COMPARISON: Comparison is made with the prior examination of the right ankle dated 02/23/2019. FINDINGS: Six views of the right foot and ankle are submitted. Osseous mineralization is normal. There is no fracture or dislocation. The joint spaces are preserved. The soft tissues are unremarkable. XR/XR ankle RT min 3V IMPRESSION: Unremarkable examination of the right foot and ankle. Electronically signed by: Dorian Cortés MD 05/28/2024 12:46 PM EST Procedures Orthopedic Splinting/Casting Injury #1: Lower Extremity Immobilizer: post-op shoe Other Orthopedic Equipment: crutches Discharge Plan Discharge Clinical Impression: Contusion of great toe, right Patient Disposition: Home, Self-Care Instructions: Contusion in Adults (ED) Additional Instructions: use the shoe and crutches for the next few days to help with ambulation Apply ice, elevate the extremity Take Motrin or Tylenol for pain as needed Follow up with the primary care doctor for any continued symptoms Prescriptions: New ibuprofen 600 mg tablet 600 mg PO Q8H PRN (Reason: fever or pain) Qty: 20 0RF acetaminophen [Tylenol] 325 mg tablet 650 mg PO Q4H PRN (Reason: fever or pain) Qty: 30 0RF No Action polymyxin B sulf-trimethoprim [Polytrim] 10,000 unit- 1 mg/mL drops 1 drp ophthalmic (eye) Q3H 7 Days Qty: 10 0RF Rx Instructions: while awake; do not exceed 6 doses in 24 hours naproxen [Naprosyn] 500 mg tablet 500 mg PO BID Qty: 20 0RF cephalexin 500 mg capsule 500 mg PO BID Qty: 14 0RF doxycycline hyclate 100 mg capsule 100 mg PO BID Qty: 14 0RF ibuprofen 600 mg tablet 600 mg PO TID PRN (Reason: fever or pain) Qty: 10 0RF cephalexin 500 mg capsule 500 mg PO BID Qty: 14 0RF ibuprofen 600 mg tablet 600 mg PO Q8H PRN (Reason: fever or pain) Qty: 20 0RF Referrals: Physician,None [Primary Care Provider] - 1 week Stand Alone Forms: Work/School Release Print Language: Micronesian
[2024-05-28 15:00] VITALS: BP 117/63; PULSE 61; RESP 18; TEMP 36.8; O2SAT 99
== END 2024-05-28 15:01 | disposition home or self-care (01) ==
PROVIDERS: Emergency Provider Emergency Medicine
DX: S90.111A Contusion of right great toe without damage to nail, initial encounter (principal); W18.49XA Other slipping, tripping and stumbling without falling, initial encounter; Y93.89 Activity, other specified; Y92.480 Sidewalk as the place of occurrence of the external cause; Y99.9 Unspecified external cause status; M79.674 Pain in right toe(s); R53.1 Weakness; R20.2 Paresthesia of skin
CPT/HCPCS: 73610; 73630; 99282; 99283